=== PATIENT | male | born 1985 | race Two or more races ===

== ENCOUNTER 2019-12-16 21:34 | Emergency (ER) | payer OTHER ==
[~2019-12-16] VITALS: Ht 182.9 cm; Wt 90.7 kg
[2019-12-16 21:34] VITALS: BP 125/97
--- NOTE | 2019-12-16 21:45 | NUR ---
[employer] AT BED SIDE
--- NOTE | 2019-12-16 21:52 | NUR ---
PT [facility]OTT[facility]
== END 2019-12-16 22:16 | disposition home or self-care (01) ==
LOC: ER 21:36
DX: F10.129 Alcohol abuse with intoxication, unspecified (principal); F41.9 Anxiety disorder, unspecified; Y90.9 Presence of alcohol in blood, level not specified; V49.49XA Driver injured in collision with other motor vehicles in traffic accident, initial encounter; Y93.89 Activity, other specified; Y92.488 Other paved roadways as the place of occurrence of the external cause; Y99.8 Other external cause status